=== PATIENT | female | born 1975 | race Caucasian/White ===

== ENCOUNTER 2022-01-03 14:54 | Emergency (ER) | payer OTHER ==
[~2022-01-03] VITALS: Ht 157.5 cm; Wt 99.8 kg
[~2022-01-03 14:54] MED LIST: CIPRSO OD; CLIN150 PO; CYCL10; Cleocin HCl300 MG PO; DOXY100 PO; ERYT.5TO RIGHTEYE; FLUO20; HYDACE10A; IBUP800 PO; MELA3 PO; METPRE4DP PO; MULVITA PO; Naprosyn500 MG PO; Norco 5-325 Ta1 EACH PO; OXYACE5T PO; OXYC10ER PO; RXCLIN PO; RXOXYACE PO; SIMV10; Ultram50 MG PO
[2022-01-03] MEDS ORDERED: CLOBETTC TOP (15:26)
== END 2022-01-03 15:29 | disposition home or self-care (01) ==
LOC: ER 14:54
DX: R21 Rash and other nonspecific skin eruption (principal); B83.9 Helminthiasis, unspecified; Z88.0 Allergy status to penicillin; Z88.2 Allergy status to sulfonamides; F17.200 Nicotine dependence, unspecified, uncomplicated
CPT/HCPCS: 99282